=== PATIENT | male | born 1940 | race Caucasian/White ===

== ENCOUNTER → 2017-03-16 | Outpatient (CLI) | payer MEDICARE, BC | LOC: RAD 15:45 | PROVIDERS: ATTEND Internal Medicine | DX: I82.409 Acute embolism and thrombosis of unspecified deep veins of unspecified lower extremity (principal) | CPT/HCPCS: 93970 ==

== ENCOUNTER 2018-08-26 12:08 | Emergency (ER) | payer MEDICARE, BC ==
[~2018-08-26] VITALS: Ht 170.2 cm; Wt 93.4 kg
--- OUTSIDE RECORDS SUMMARY | 2018-08-26 12:11 | XMS REPORT ---
[facility] Address Unknown Phone Unavailable Care Team Providers Care Brake Operator Sheet Metal Name Role Phone Bimal VELASQUEZ Unavailable Unavailable Problems This patient has no known problems. Allergies, Adverse Reactions, Alerts This patient has no known allergies or adverse reactions. Medications This patient has no known medications. Results Test Description Test Time Test Comments Text Results Atomic Results Result Comments CT BRAIN WO 2018-08-26 08:41:00 [place] [address] Patient Name: MARIELENA GALLO MR #: [id number] : 1940 Age/Sex: 77/M Req #: [id number] Adm Physician: Ordered by: LIDIA VELASQUEZ MD Report #: [id number] Location: CT Room/Bed: Procedure: [id number] CT/CT BRAIN WO Exam Date: 08/26/18 Exam Time: 814 REPORT STATUS: Signed Exam: Head CT without contrast History: TIA, Parkinson's, dimension, CVA, memory loss Comparison studies: None Technique: Axial images were obtained from the skull base to the vertex. Coronal and sagittal images reconstructed from the axial data. Dose modulation, iterative reconstruction, and/or weight based adjustment of the mA/kV was utilized to reduce the radiation dose to as low as reasonably achievable. Radiation dose: Total DLP: 1036 mGy*cm. Estimated effective dose: DLP x 0.015 Intravenous contrast: None Findings: Scalp: No abnormalities. Bones: No fractures, blastic or lytic lesions. Brain sulci: Mildly prominent. Ventricles: Mild compensatory dilatation. No hydrocephalus. Extra-axial spaces: Right hemispheric cyst evolving subacute subdural hematoma, isodense to mancia matter) with regional mass effect results in approximately 2 mm right to left midline shift. No uncal herniation. Parenchyma: No mass, acute hemorrhage or acute or chronic cortical insults. A few scattered subtle hypodensities in the supratentorial white matter are nonspecific most compatible with chronic microvascular ischemic changes. There is mild generalized brain volume loss. No significant focal disproportionate lobar, hippocampal, brainstem or cerebellar atrophy. Sellar/suprasellar region: No abnormalities. Craniocervical junction: Patent foramen magnum. No Chiari one malformation. Incidental findings: Atherosclerotic calcifications in the carotid siphons. IMPRESSION: 1. Subacute 9 mm thick right hemispheric subdural hematoma results in 2 mm right to left midline shift. No uncal herniation. No acute intracranial hemorrhage. 2. Mild generalized brain volume loss. 3. Minimal chronic microvascular ischemic changes. Findings were discussed with Dr. Velasquez's medical sales associate, at 8:51 AM on 08/26/2018. Signed by: Dr. Jayson Hua M.D. on 08/26/2018 8:54 AM Dictated By: JAYSON HUA MD 3 Transcribed By: CARISSA on 08/26/18853 COPY TO: LIDIA VELASQUEZ MD
--- NOTE | 2018-08-26 12:25 | NUR ---
BRITTANI BECKMAN ,FINISHER CARD TENDER AT BEDSIDE FOR PATIENT EVAL AND DISCUSSING THE CURRENT PLAN OF CARE WITH PATIENT AND FAMILY,VERBALIZED UNDERSTANDING.
--- NOTE | 2018-08-26 12:38 | NUR ---
DR ENNIS AT BEDSIDE FOR PATIENT EVAL.
--- NOTE | 2018-08-26 12:41 | NUR ---
INITIATED TRANSFER TO [facility] FOR HIGHER LEVEL OF CARE, SPOKE WITH RUBENS BEATTY.
[2018-08-26 12:48] LABS: BASOPHILS % 0.4 % (0.0-1.0); EOSINOPHILS # (AUTO) 0.1 (0.0-0.4); EOSINOPHILS % 1.6 % (0.0-6.0); HEMATOCRIT 38.6 % (38.2-49.6); LYMPHOCYTES # (AUTO) 1.1 (1.0-3.2); LYMPHOCYTES % 12.3 % (18.0-39.1); MEAN CORPUSCULAR HGB CONC 33.7 g/dL (31-35); MONOCYTES # (AUTO) 0.5 (0.2-0.8); MONOCYTES % 5.9 % (4.4-11.3); NEUTROPHILS # (AUTO) 7.1 (2.1-6.9); NEUTROPHILS % 79.1 % (38.7-80.0); PLATELET COUNT 88 x10e3/uL (140-360); RED BLOOD COUNT 3.94 x10e6/uL (4.3-5.7); RED CELL DISTRIBUTION WIDTH 12.4 % (11.7-14.4)
[2018-08-26 13:09] LABS: INR 1.96
[2018-08-26 13:10] LABS: PARTIAL THROMBOPLASTIN TIME 37.6 seconds (23.8-35.5)
[2018-08-26 13:17] LABS: ALANINE AMINOTRANSFERASE 10 IU/L (0-55); ALBUMIN 3.9 g/dL (3.5-5.0); ALBUMIN/GLOBULIN RATIO 1.3 (0.8-2.0); ALKALINE PHOSPHATASE 88 IU/L (40-150); BLOOD UREA NITROGEN 15 mg/dL (7-26); BUN/CREATININE RATIO 17 (6-25); CALCIUM 9.8 mg/dL (8.4-10.2); CARBON DIOXIDE 30 mmol/L (22-29); CHLORIDE 103 mmol/L (98-107); CREATINE KINASE 35 IU/L (30-200); CREATININE, SERUM 0.86 mg/dL (0.72-1.25); EST GLOMERULAR FILTRATION RATE > 60 ML/MIN (60-); GLUCOSE 102 mg/dL (74-118); SODIUM 140 mmol/L (136-145)
--- NOTE | 2018-08-26 13:48 | NUR ---
NOTIFIED TRANSFER CENTER FOR UPDATE ON STATUS OF TRANSFER. SPOKE WITH FRANCESCO FROM [facility] TRANSFER [facility], WAITING ON BED TO COME AVAILABLE AT THIS TIME.
--- NOTE | 2018-08-26 14:01 | NUR ---
SPOKE WITH GUANAKO MAYA [facility] TRANSFER [facility], ASKED IF PATIENT CAN BE TRANSFERRED ER TO ER INSTEAD OF AWAITING ON NEURO ICU BED TO COME AVAILABLE, STATES SHE WILL TALK WITH NUCLEAR PHYSICIST AND WILL NOTIFY [facility] CHARGE NUSRE WITH DECISION.
--- NOTE | 2018-08-26 14:14 | NUR ---
TRANSFER ACCEPTED: BED: [address] [place] [address] BED #4 ACCEPTING DOCTOR: DR ELIZABETH BOTELLO @ [id number] ADMIN APPROVAL: FRANCESCO BEATTY @ [id number]
--- NOTE | 2018-08-26 14:17 | NUR ---
NOTIFIED [facility] FOR PATIENT TRANSFER VIA STRETCHER TO [facility], SPOKE WITH LOLITA.
--- NOTE | 2018-08-26 14:55 | NUR ---
CONSENT FOR BLOOD TRANSFUSION SIGNED AND PLACED IN CHART
[2018-08-26] MEDS ORDERED: SODIUM CHLORIDE 0.9% 250ML 250 ML ONE (15:16)
== END 2018-08-26 15:39 | disposition other institution (70) ==
LOC: ER 12:08
DX: S06.5X0A Traumatic subdural hemorrhage without loss of consciousness, initial encounter (principal); R42 Dizziness and giddiness; W18.30XA Fall on same level, unspecified, initial encounter; Y93.01 Activity, walking, marching and hiking; Y92.89 Other specified places as the place of occurrence of the external cause; G20 Parkinson's disease; I10 Essential (primary) hypertension; E11.9 Type 2 diabetes mellitus without complications; F41.9 Anxiety disorder, unspecified; Z95.810 Presence of automatic (implantable) cardiac defibrillator
CPT/HCPCS: 36415; 80053; 82550; 82553; 84484; 85025; 85610; 85730; 86850; 86900; 99284; J7050; P9017

== ENCOUNTER → 2018-08-26 | Outpatient (CLI) | payer MEDICARE, BC ==
--- NOTE | 2018-08-26 08:57 | Diagnostic Imaging Report ---
Exam: Head CT without contrast History: TIA, Parkinson's, dimension, CVA, memory loss Comparison studies: None Technique: Axial images were obtained from the skull base to the vertex. Coronal and sagittal images reconstructed from the axial data. Dose modulation, iterative reconstruction, and/or weight based adjustment of the mA/kV was utilized to reduce the radiation dose to as low as reasonably achievable. Radiation dose: Total DLP: 1036 mGy*cm. Estimated effective dose: DLP x 0.015 Intravenous contrast: None Findings: Scalp: No abnormalities. Bones: No fractures, blastic or lytic lesions. Brain sulci: Mildly prominent. Ventricles: Mild compensatory dilatation. No hydrocephalus. Extra-axial spaces: Right hemispheric cyst evolving subacute subdural hematoma, isodense to mancia matter) with regional mass effect results in approximately 2 mm right to left midline shift. No uncal herniation. Parenchyma: No mass, acute hemorrhage or acute or chronic cortical insults. A few scattered subtle hypodensities in the supratentorial white matter are nonspecific most compatible with chronic microvascular ischemic changes. There is mild generalized brain volume loss. No significant focal disproportionate lobar, hippocampal, brainstem or cerebellar atrophy. Sellar/suprasellar region: No abnormalities. Craniocervical junction: Patent foramen magnum. No Chiari one malformation. Incidental findings: Atherosclerotic calcifications in the carotid siphons. IMPRESSION: 1. Subacute 9 mm thick right hemispheric subdural hematoma results in 2 mm right to left midline shift. No uncal herniation. No acute intracranial hemorrhage. 2. Mild generalized brain volume loss. 3. Minimal chronic microvascular ischemic changes. Findings were discussed with Dr. Velasquez's medical examiner, at 8:51 AM on 08/26/2018. Signed by: Dr. Jean Carlos Hua M.D. on 08/26/2018 8:54 AM
== END ==
LOC: CT 08:00
PROVIDERS: ATTEND Internal Medicine
DX: G20 Parkinson's disease (principal); F02.80 Dementia in other diseases classified elsewhere, unspecified severity, without behavioral disturbance, psychotic disturbance, mood disturbance, and anxiety; R41.3 Other amnesia; Z86.73 Personal history of transient ischemic attack (TIA), and cerebral infarction without residual deficits
CPT/HCPCS: 70450